=== PATIENT | female | born 1950 | race Caucasian/White ===

== ENCOUNTER → 2016-10-18 12:32 | Outpatient (CLI) | payer MEDICARE ==
[2013-02-02 15:51] VITALS: BMI 37.0
[~2016-10-18 12:32] MED LIST: CENTRUM SILVER1 EAC3 PO; COLACE100 MG PO; DETROL LA4 MG PO; DEXILANT60 MG PO; ESTRACE 0.5 MG0.5 MG PO; KLOR-CON8 MEQ PO; LISINOPRIL10 MG PO; MAGNESIUM OXID250 MG PO; MOBIC7.5 MG PO; MOTRIN600 MG PO; NEXIUM40 MG PO; OS-CAL 500+D TA1 TAB PO; PERCOCET 5/3251 TA1 PO; POTASSIUM99 M1 PO; PREMARIN1.25 MG PO; REQUIP XL2 MG PO; SPIRULINA500 MG PO; VITAMIN B COMPL1 TA1 PO; VITAMIN C250 MG PO
[2016-12-04 18:09] VITALS: BMI 40.1
== END | disposition home or self-care (01) ==
LOC: D.MRI 11:00
DX: M25.562 Pain in left knee (principal); M25.561 Pain in right knee

== ENCOUNTER → 2016-11-01 15:24 | Outpatient (CLI) | payer MEDICARE ==
[2013-02-02 15:51] VITALS: BMI 37.0
[~2016-11-01 15:24] MED LIST changes: -CENTRUM SILVER1 EAC3 PO; -DEXILANT60 MG PO; -ESTRACE 0.5 MG0.5 MG PO; -MAGNESIUM OXID250 MG PO; -MOBIC7.5 MG PO; -POTASSIUM99 M1 PO
== END | disposition home or self-care (01) ==
LOC: D.LABREF 15:24
DX: M17.12 Unilateral primary osteoarthritis, left knee (principal); Z11.8 Encounter for screening for other infectious and parasitic diseases

== ENCOUNTER 2016-11-29 09:00 | Inpatient (IN) | payer MEDICARE ==
[~2016-11-29] VITALS: Ht 157.5 cm; Wt 99.5 kg
--- NOTE | ~2016-11-29 | OP ---
PATIENT NAME: MERLIN ARGUELLO MEDICAL RECORD: [id number] :52 LOCATION:[facility] [place] ADMISSION DATE:12/04/16 SURGEON: CAYETANO RUIZ MD DATE OF OPERATION: 12/04/2016 PREOPERATIVE DIAGNOSIS: Right knee degenerative joint. POSTOPERATIVE DIAGNOSIS: Right knee degenerative joint. PROCEDURE PERFORMED: Right total knee arthroplasty. SURGEON: Jon Ruiz MD ANESTHESIA: General with a block for postop pain. CONDITION: The patient tolerated the procedure well, was transferred to the recovery room in stable condition at termination of the procedure. INDICATIONS: This is a pleasant 66-year-old female with advanced degenerative changes of her knee. She is no longer tolerating it. She presents for knee replacement. We discussed risks, benefits, and alternatives. She understood and wished to proceed. OPERATIVE REPORT: The patient was taken to the operating room, placed in a supine position. General anesthesia was obtained. She did get block in the preop holding area. In the operating room, the right knee was confirmed to be the correct knee. It was prepped and draped in the normal fashion. She had a secondary ChloraPrep and Ioban dressing placement. She did receive Ancef. A timeout was also performed. After this was accomplished, she was exsanguinated with an Reginald wrap. Tourniquet was elevated to 350. Midline incision was made followed by a medial parapatellar incision. A medial soft tissue sleeve was elevated. The fat pad was removed. I had the femur, placed a guide and made a distal femoral cut. The distal femur was sized at 57.5. The rest of the distal femoral cuts were measured. I then made a proximal tibial cut. I placed the proximal tibial tray with the femur, took the knee through a range of motion and marked the tray for rotation and then went back and punched for the tray, it was a 63. I did take off the backside of the patella, measured this at 28, drill the 3 peg holes for 28 three peg hole patella. I then copiously irrigated, took everything out, cemented into place a 57.5 femur, 63 tibia with 28 three peg hole patellar button. Once this was accomplished, she was copiously irrigated, then closed with #1 double-stranded PDS then closed with 2-0 Vicryl, then quoc. She was very stable in flexion and extension. She tolerated the procedure well. Tourniquet was dropped. She received TXA, was awakened and transferred to the recovery room in stable condition. TRANSINT:[id number] Voice Confirmation ID: [id number] DOCUMENT ID: [id number] OPERATIVE REPORT [id number] MERLIN ARGUELLO, CAYETANO MCKEON MD CC: [id number] DICTATION DATE: 12/04/16844 COMMISSARY MANAGER: 12/04/16 0934 ADM IN [id number] [place] [address]
--- NOTE | ~2016-11-29 | HP ---
PATIENT: MERLIN ARGUELLO MEDICAL RECORD: [id number] ACCOUNT: [id number] LOCATION:[facility]- : 51 ADMISSION DATE: 12/04/16 HISTORY AND PHYSICAL EXAMINATION HISTORY OF PRESENT ILLNESS: This is a pleasant 66-year-old female with increasing pain in her right knee. This has gotten more and more intolerable. She has tried anti-inflammatories, therapy medications, none of this is resolving her pain at this juncture. With this ongoing, she presents now for a knee replacement. She has been taking some Tylenol 3 p.r.n., amoxicillin, atorvastatin. She does take some occasionally citalopram. She takes Crestor, Flexeril, Detrol, fluconazole, gemfibrozil, hydrochlorothiazide, Nexium, lisinopril, pravastatin, Prempro, ropinirole. She has a history of being overweight, GERD and knee pain. She has negative family history. She does not smoke. She does not drink. PAST SURGICAL HISTORY: She has previously had a hernia surgery. PAST MEDICAL HISTORY: She has a history of hypertension. PHYSICAL EXAMINATION: VITAL SIGNS: Height 5 feet 2 inches, weight of 220, blood pressure is 151/90, her pulse is 81. HEENT: Within normal limits. CARDIOVASCULAR: Regular rate and rhythm. LUNGS: Clear. ABDOMEN: Benign. EXTREMITIES: Examination of her right knee reveals genu varum appearance. She has medial joint line tenderness, crepitus, range of motion from 0 to 110 degrees. No laxity. Neurovascularly intact distally. DIAGNOSTIC DATA: X-rays show that she has [id number]. ASSESSMENT: Right knee pain. PLAN: Right knee replacement. We discussed risks, benefits and alternatives. She was brought into the hospital to undergo this. TRANSINT:[id number] Voice Confirmation ID: [id number] DOCUMENT ID: [id number] CAYETANO CABRERA MD CC: [id number] DICTATION DATE: 12/04/16846 PAINT LINE SUPERVISOR: 12/04/16 09 ADM IN [id number] [place] [address]
[2016-11-29 08:47] LABS: BASOPHILS 0.4 % (0-2); EOSINOPHILS 2.7 % (0-7); HEMATOCRIT 38.6 % (36.0-48.0); HEMOGLOBIN 12.6 g/dL (12-16); LYMPHOCYTES 49.5 % (15-50); MCHC 32.6 g/dL (31.0-37.0); MCV 88.7 fL (80.0-100.0); MEAN PLATELET VOLUME 10.5 fL (7.4-10.4); MONOCYTES 8.4 % (2-11); PLATELET COUNT 312 10x3/uL (130-400); RBC 4.35 10x6/uL (4.00-5.40); RDW 16.1 % (11.5-14.5); WBC 4.8 10x3/uL (4.8-10.8)
[2016-11-29 08:50] LABS: APPEARANCE HAZY (CLEAR); BILIRUBIN NEGATIVE (NEGATIVE); COLOR YELLOW (YELLOW); GLUCOSE NEGATIVE (NEGATIVE); KETONE NEGATIVE (NEGATIVE); LEUKOCYTE ESTERASE NEGATIVE (NEGATIVE); NITRITE NEGATIVE (NEGATIVE); PROTEIN TRACE mg/dL (NEGATIVE); UROBILINOGEN NORMAL (NORMAL)
[2016-11-29 08:53] LABS: BACTERIA MODERATE /hpf (NONE SEEN); MUCUS <1+ /lpf (NONE SEEN); RED CELLS - URINE OCC /hpf (0-5); WHITE CELLS - URINE OCC /hpf (0-5); YEAST OCC /hpf (NONE SEEN)
[2016-11-29 08:56] LABS: CALC OSMOLALITY 279 mosm/kg (275-300); CALCIUM 9.2 mg/dL (8.5-10.1); CARBON DIOXIDE 29.2 mmol/L (21.0-32.0); CHLORIDE - SERUM 103 mmol/L (98-107); CREATININE - SERUM 0.8 mg/dL (0.6-1.3); GLUCOSE 100 mg/dL (74-106); POTASSIUM - SERUM 3.9 mmol/L (3.5-5.1); SODIUM 140 mmol/L (136-145); UREA NITROGEN 15 mg/dL (7-18); eGFR NON AFRICAN AMERICAN 76 mL/min (90-120)
[2016-11-29 08:57] LABS: APTT 25.2 SECONDS (22.8-39.4); PROTIME 13.1 SECONDS (11.6-15.0)
[~2016-11-29 09:00] MED LIST changes: +CENTRUM SILVER1 EAC3 PO; +DEXILANT60 MG PO; +ESTRACE 0.5 MG0.5 MG PO; +MAGNESIUM OXID250 MG PO; +MOBIC7.5 MG PO; +POTASSIUM99 M1 PO
[2016-12-04 06:00] VITALS: BP 120/70; BMI 40.3
--- NOTE | 2016-12-04 06:12 | NUR ---
0600-DR CABRERA NOTIFIED OF PATIENTS URINE, NEW ORDER RECEIVED FOR 80MG OF GENTAMICIN IV TO BE SENT TO OR PRE OP. READ BACK AND VERBALIZED
--- NOTE | 2016-12-04 08:04 | NUR ---
0744: RIGHT LEG SCRUBBED WITH HIBICLENS AND ALCHOL PRIOR TO STERILE PREP WITH CH[facility]OPREP. [facility]
--- NOTE | 2016-12-04 08:06 | NUR ---
0700: NO FAMILY PRESENT PRIOR TO CASE. PT STATED THAT HER SISTER WOULD BE HERE LATER
[2016-12-04 09:24] VITALS: BP 138/74
--- NOTE | 2016-12-04 09:28 | NUR ---
RECIEVED TO ROOM FROM RECOVERY SLEEPY BUT AROUSABLE ABLE TO ANSWER QUESTIONS APPROPRIATELY. VS WNL O2 SAT 96% ROOM AIR. DRESISNG IN TACT TO TOTAL KNEE
--- NOTE | 2016-12-04 12:07 | NUR ---
PT AWAKE AND ALERT IN ROOM WATCHING TELEVISION VS WNL NO ACUTE DISTRESS NTOED PT DENEIS PAIN OR DISCOMFORT HAS VOIDED X 2 TO BEDPAN CLEAR YELLOW URINE. ICE PACK TO RIGHT KNEE NOTED SURGICAL DRESSING IN PLACE
--- NOTE | 2016-12-04 16:15 | NUR ---
PT HERE FOR LEFT KNEE REPLACEMENT. PT AOX4 RESP EVEN AND NONLABORED. PT DENIES NEEDS AT THIS TIME.IV TO LEFT FOREARM PATENT AND INTACT. BED AT LOWEST SETTING CALL LIGHT WITHIN REACH WILL CONTINUE TO MONITOR
[2016-12-04 16:27] VITALS: BP 99/64
[2016-12-04 18:09] VITALS: BP 138/74; Ht 157.5 cm; Wt 99.5 kg
--- NOTE | 2016-12-04 19:00 | NUR ---
PATIENT IN BED ON CPM. HOB 10 DEGREES. AAOX4. RR EVEN AND UNLABORED. 0 S/S OF DISTRESS. STATES PAIN IS A 3/10. IV TO LEFT FA PATENT WITH NO REDNESS OR SWELLING. DRESSING TO RIGHT KNEE CDI. SCD'S ON. B/A ON. SRX2. BED LOW. CALL LIGHT WITHIN REACH.
[2016-12-04 20:00] VITALS: BP 110/46
--- NOTE | 2016-12-04 21:10 | NUR ---
PATIENT OFF CPM. NIGHTTIME MEDS GIVEN.
--- NOTE | 2016-12-04 22:10 | NUR ---
PATIENT STATES THAT HER PAIN IS A 4/10 AND WANTS SOMETHING FOR PAIN BUT THAT THE PAIN MEDICATION MAKES HER ITCH. BENADRYL GIVEN PER TELEPHONE ORDER AND 5MG OXY IR GIVEN. WILL REASSESS.
[2016-12-05 04:00] VITALS: BP 113/59
--- NOTE | 2016-12-05 04:00 | NUR ---
PATIENT SLEEPING WITH NO DISTRESS NOTED. CALL LIGHT WITHIN REACH.
[2016-12-05 06:11] LABS: HEMATOCRIT 34.1 % (36.0-48.0); HEMOGLOBIN 10.9 g/dL (12-16); MCH 28.6 pg (26.0-34.0); MCV 89.5 fL (80.0-100.0); MEAN PLATELET VOLUME 10.2 fL (7.4-10.4); RBC 3.81 10x6/uL (4.00-5.40); RDW 16.3 % (11.5-14.5); WBC 7.8 10x3/uL (4.8-10.8)
--- NOTE | 2016-12-05 06:21 | NUR ---
ASSISTED PATIENT TO USE BEDPAN, NOW ON CPM. OXY IR GIVEN FOR PAIN.
--- NOTE | 2016-12-05 07:40 | NUR ---
AWAKE, HOPEFUL FOR DISCHARGE TOMORROW, READY TO WALK SOME TODAY, DENIES NEEDS, BED LOWEST POSITION, CALL LIGHT IN REACH, WILL CONTINUE TO MONITOR
--- NOTE | 2016-12-05 08:35 | NUR ---
AWAKE AND ALERT AT THIS TIME. EATING BREAKFAST AT THIS TIME. RESPIRATIONS EVEN AND NON LABORED. CALL LIGHT IN REACH, WILL CONTINUE WITH PLAN OF CARE.
[2016-12-05 08:57] VITALS: BP 106/47
--- NOTE | 2016-12-05 10:25 | NUR ---
UP IN CHAIR, HELPED TO BATHROOM, DENIES OTHER NEEDS, WILL CONTINUE TO MONITOR
[2016-12-05 12:00] VITALS: BP 132/97
--- NOTE | 2016-12-05 14:03 | NUR ---
* Is the patient Alert and Oriented? Yes 0 * How many steps to enter\exit or inside your home? 6-7 0 * PCP Dr. Melissa 0 * Pharmacy [facility] on [address] * Preadmission Environment Home with Family 0 * ADLs Independent 0 * List name and contact numbers for known caregivers / representatives who currently or will assist patient after discharge: Sister Phyllis Kaye [phone] 0 * Additional services required to return to the preadmission environment? Yes 0 * Can the patient safely return to the preadmission environment? Yes 0 * Has this patient been hospitalized within the prior 30 days at any hospital? No 12/05/2016 13:57 DCP: Discharge Planning Patient Name: HAILEY ARGUELLO Admission Status: Elective Accout number: [id number] Admission Date: 12-04-2016 : 1950 Admission Diagnosis:UNILATERAL PRIMARY OSTEOARTHRITIS, RIGHT KNEE Attending: MICAELA Current LOS: 1 Anticipated DC Date: 12-06-2016 Planned Disposition: Home with Home Health Primary Insurance: MEDICARE A & B Discharge Planning Comments: CM met with patient to assess dc plans/needs. Patient states she lives alone & is independent with all ADL's & IADL's. She reports she has a good support system of family & friends. She states she will return home at discharge. She will not have transportation to outpatient physical therapy until she is released to drive. Discussed home health options. NANCY signed for [facility]. Initial referral faxed. Louise sanchez order faxed to Hailey at [facility] to be delivered to hospital prior to discharge. CM will follow. Office Technology Professor: Katharine Davies
[2016-12-05 17:12] VITALS: BP 114/52
--- NOTE | 2016-12-05 19:00 | NUR ---
PATIENT IN BED ON CPM. HOB 30 DEGREES. AAOX4. RR EVEN AND UNLABORED. 0 S/S OF DISTRESS. STATES PAIN IS AN 8/10. IV TO LEFT FA PATENT WITH NO REDNESS OR SWELLING. BANDAGE TO RIGHT KNEE CDI. ICE TO RIGHT KNEE. SCD'S ON. B/A ON. SRX2. BED LOW. CALL LIGHT WITHIN REACH.
[2016-12-05 20:02] VITALS: BP 136/78
--- NOTE | 2016-12-05 21:30 | NUR ---
PATIENT OFF CPM. ASSISTED PATIENT TO BSC AND BACK TO BED. NIGHTTIME MEDS GIVEN. DEMEROL GIVEN FOR PAIN. WILL REASSESS. S/L IV.
--- NOTE | 2016-12-05 23:25 | NUR ---
PATIENT SLEEPING WITH NO DISTRESS NOTED. CALL LIGHT WITHIN REACH.
[2016-12-05 23:48] VITALS: BP 152/64
--- NOTE | 2016-12-06 01:44 | NUR ---
ASSISTED PATIENT TO BATHROOM. DEMEROL GIVEN FOR PAIN.
[2016-12-06 04:00] VITALS: BP 160/71
[2016-12-06 05:29] LABS: HEMATOCRIT 32.5 % (36.0-48.0); HEMOGLOBIN 10.4 g/dL (12-16); MCH 28.7 pg (26.0-34.0); MCV 89.5 fL (80.0-100.0); RBC 3.63 10x6/uL (4.00-5.40); RDW 16.6 % (11.5-14.5); WBC 6.7 10x3/uL (4.8-10.8)
--- NOTE | 2016-12-06 05:34 | NUR ---
ASSISTED PATIENT TO BATHROOM AND BACK TO BED. DEMEROL GIVEN FOR PAIN. CPM ON.
--- NOTE | 2016-12-06 07:30 | NUR ---
CPM MACHINE ON, DENIES NEEDS, BED LOWEST POSITION, CALL LIGHT IN REACH, BED ALARM ON, WILL CONTINUE TO MONITOR
[2016-12-06] MEDS ORDERED: ELIQUIS2.5 MG PO (07:57)
[2016-12-06] MEDS ORDERED: Demerol PO (07:57)
[2016-12-06 08:21] VITALS: BP 143/78
--- NOTE | 2016-12-06 11:19 | NUR ---
12/06/2016 11:15 DCP: Discharge Planning Patient Name: MERLIN ARGUELLO Encounter No: [id number] : 1950 Primary Insurance: MEDICARE A & B Anticipated DC Date: 12-06-2016 Planned Disposition: Home with Home Health External Planned Provider: [facility] DCP follow-up note: DC order rec'd. Patient and family in agreement with discharge plan. No changes to plan. DC Med Rec & Instructions have been faxed to [facility]. Rolling walker has been delivered. Anticipate dc this afternoon. Katharine Davies
--- NOTE | 2016-12-06 15:24 | NUR ---
DISCHARGE PAPERS AND INSTRUCTIONS GIVEN, QUESTIONS ANSWERED, IV REMOVED, DISCHARGED PER WC WITH BELONGINGS
== END 2016-12-06 15:27 | disposition home health service (06) | DRG 470 ==
LOC: D.SDCHOLD 12-04 05:08 → D.MS 12-04 05:08 → D.SDCHOLD 12-04 07:00 → D.MS 12-04 09:20
PROVIDERS: ADMIT Orthopaedic Surgery Sports Medicine
PROC: 0SRC0J9 Replacement of Right Knee Joint with Synthetic Substitute, Cemented, Open Approach (ICD-10-PCS; 2016-12-04)
PROC: 0SRC0J9 Replacement of Right Knee Joint with Synthetic Substitute, Cemented, Open Approach (ICD-10-PCS; principal; 2016-12-04 07:30)
DX: M17.11 Unilateral primary osteoarthritis, right knee (principal); I10 Essential (primary) hypertension; G25.81 Restless legs syndrome; G47.30 Sleep apnea, unspecified

== ENCOUNTER 2017-01-20 16:18 | Emergency (ER) | payer MEDICARE ==
[2016-12-04 18:09] VITALS: BMI 40.1
[~2017-01-20 16:18] MED LIST changes: +Demerol PO; +ELIQUIS2.5 MG PO
== END 2017-01-20 18:35 | disposition home or self-care (01) ==
LOC: D.ER 16:18
DX: M25.561 Pain in right knee (principal); M25.461 Effusion, right knee; I10 Essential (primary) hypertension; K21.9 Gastro-esophageal reflux disease without esophagitis; W19.XXXA Unspecified fall, initial encounter